=== PATIENT | female | born 1940 | race Caucasian/White ===

== ENCOUNTER 2016-11-29 10:03 | Inpatient (IN) | payer MEDICARE, OTHER ==
[2016-11-29] VITALS (18 sets, daily range): BP systolic 110–149; RESP 14–24; TEMP 97.3–99; Ht 162.6 cm; Wt 87.7 kg
[~2016-11-29] VITALS: Ht 162.6 cm; Wt 87.7 kg
[2016-11-29] MEDS ORDERED: BACITRACIN 50,000 UNITS INJ IRRIG ONE (10:16)
[2016-11-29] MEDS ORDERED: NEOSTIGMINE 10 MG/10 ML VIAL IV ONE (10:25)
[2016-11-29] MEDS ORDERED: LIDOCAINE 2% SYR 5 ML IV ONE (10:25)
[2016-11-29] MEDS ORDERED: FENTANYL 100 MCG/2 ML AMP IV ONE (10:25)
[2016-11-29] MEDS ORDERED: ROCURONIUM 50 MG VIAL IV ONE (10:25)
[2016-11-29] MEDS ORDERED: PROPOFOL 20 ML PER ML IV ONE (10:25)
[2016-11-29] MEDS ORDERED: SUCCINYLCHOLINE 20 MG/ML VL IV ONE (10:25)
[2016-11-29] MEDS ORDERED: GLYCOPYRROLATE 0.2 MG/ML VIAL IV ONE (10:25)
[2016-11-29] MEDS ORDERED: SODIUM CHLORIDE 0.9% 250 ML IV ONE (11:59)
[2016-11-29] MEDS ORDERED: CEFTRIAXONE 1 GM VIAL ONE (11:59)
[2016-11-29] MEDS ORDERED: MORPHINE 4 MG/ML SYR IV PRN ×3 (12:05→18:10)
[2016-11-29] MEDS ORDERED: SALINE FLUSH 10 ML FLUSH PRN ×2 (12:05→18:10)
[2016-11-29] MEDS ORDERED: DEXTROSE 50% SYRINGE 50 ML IV PRN ×2 (12:05→18:10)
[2016-11-29] MEDS ORDERED: ACETAMINOPHEN 325 MG TAB PO PRN (12:05)
[2016-11-29] MEDS ORDERED: MORPHINE 2 MG/ML SYR IV PRN ×3 (12:05→18:10)
[2016-11-29] MEDS ORDERED: ONDANSETRON 4 MG VIAL IV PRN ×2 (12:05→17:15)
[2016-11-29] MEDS ORDERED: GLUCAGON 1 MG VIAL IM PRN ×2 (12:05→18:10)
[2016-11-29] MEDS ORDERED: CEFAZOLIN 2,000 MG in SODIUM CHLORIDE 0.9% 100 ML IV ONE (12:10)
[2016-11-29] MEDS: ALLOPURINOL 300 MG TAB PO SCH (13:19)
[2016-11-29] MEDS: BUMETANIDE 1 MG TAB PO SCH ×2 (14:06→19:45)
[2016-11-29] MEDS: LEVOTHYROXINE 0.15 MG TAB PO SCH (14:07)
[2016-11-29] MEDS: DILTIAZEM CD 120 MG CAP PO SCH (14:07)
[2016-11-29] MEDS ORDERED: LIDOCAINE 1% BUFFERED 1 ML SYR INTRADERM PRN (14:45)
[2016-11-29] MEDS ORDERED: SODIUM CHLORIDE 0.9% 1,000 ML IV SCH (14:45)
[2016-11-29] MEDS ORDERED: NEB-XOPENEX 0.63 MG/3 ML INH ONE (14:45)
[2016-11-29] MEDS ORDERED: MIDAZOLAM 2 MG/2 ML INJ IV ONE (14:45)
[2016-11-29] MEDS ORDERED: MEPERIDINE 25 MG/ML IV PRN (17:15)
[2016-11-29] MEDS ORDERED: LACT RINGERS 1,000 ML IV SCH (18:10)
[2016-11-29] MEDS ORDERED: MAG HYDROX 30 ML UDC PO PRN (18:10)
[2016-11-29] MEDS ORDERED: ONDANSETRON 4 MG TAB PO PRN (18:10)
[2016-11-29] MEDS: MULTIVITS/MINERALS (THERAGRAN M) TAB PO SCH (18:18)
[2016-11-29] MEDS ORDERED: DILAUDID 1 MG/ML AMP ONE (18:26)
[2016-11-29] MEDS ORDERED: DILAUDID 1 MG/ML AMP IV PRN (18:40)
[2016-11-29] MEDS: SALINE FLUSH 10 ML FLUSH SCH (20:00)
[2016-11-29] MEDS ORDERED: SALINE FLUSH 10 ML FLUSH SCH (20:00)
[2016-11-29] MEDS: DUONEB INH PRN ×2 (20:17→23:18)
[2016-11-29] MEDS: DOCUSATE SOD 100 MG CAP PO SCH (21:33)
[2016-11-29] MEDS: Atorvastatin 40 MG TAB PO SCH (21:33)
[2016-11-29] MEDS: CEFAZOLIN 2,000 MG in SODIUM CHLORIDE 0.9% 100 ML IV SCH (23:58)
[2016-11-30 02:52] VITALS: BP_SYST 101; RESP 16; TEMP 98.8
[2016-11-30] MEDS: CEFAZOLIN 2,000 MG in SODIUM CHLORIDE 0.9% 100 ML IV SCH ×3 (04:52→16:59)
[2016-11-30] MEDS: SODIUM CHLORIDE 0.9% FLUSH BAG 500 ML IV SCH (05:53)
[2016-11-30] MEDS ORDERED: SODIUM CHLORIDE 0.9% FLUSH BAG 500 ML IV SCH (06:00)
[2016-11-30] MEDS: LEVOTHYROXINE 0.15 MG TAB PO SCH (06:48)
[2016-11-30] MEDS: ENOXAPARIN 30 MG/0.3 ML SYR SUBQ SCH (06:49)
[2016-11-30 07:19] VITALS: BP_SYST 99; RESP 16; TEMP 98.2
[2016-11-30] MEDS: SALINE FLUSH 10 ML FLUSH SCH ×2 (08:00→21:08)
[2016-11-30] MEDS: BUMETANIDE 1 MG TAB PO SCH ×2 (08:13→16:59)
[2016-11-30] MEDS: DILTIAZEM CD 120 MG CAP PO SCH (08:14)
[2016-11-30] MEDS: DOCUSATE SOD 100 MG CAP PO SCH ×2 (08:14→21:01)
[2016-11-30] MEDS: MULTIVITS/MINERALS (THERAGRAN M) TAB PO SCH (08:14)
[2016-11-30] MEDS: ALLOPURINOL 300 MG TAB PO SCH (08:14)
[2016-11-30] MEDS: ONDANSETRON 4 MG VIAL IV PRN (08:29)
[2016-11-30] MEDS ORDERED: MAG HYDROX 30 ML UDC PO SCH (09:00)
[2016-11-30 12:14] VITALS: BP_SYST 96; RESP 16; TEMP 97.4
[2016-11-30 15:48] VITALS: BP_SYST 93; RESP 20; TEMP 97.7
[2016-11-30 20:25] VITALS: BP_SYST 97; RESP 20; TEMP 98
[2016-11-30] MEDS: SITAGLIPTIN 50 MG TAB PO SCH (20:44)
[2016-11-30] MEDS: METFORMIN XR 500 MG TAB PO SCH (20:44)
[2016-11-30] MEDS: Atorvastatin 40 MG TAB PO SCH (21:02)
[2016-11-30 23:30] VITALS: BP_SYST 96; RESP 18; TEMP 98.1
[2016-12-01] VITALS (8 sets, daily range): BP systolic 98–109; RESP 12–20; TEMP 97.7–98.7
[2016-12-01] MEDS: SODIUM CHLORIDE 0.9% FLUSH BAG 500 ML IV SCH (05:18)
[2016-12-01] MEDS: ENOXAPARIN 30 MG/0.3 ML SYR SUBQ SCH (05:30)
[2016-12-01] MEDS: LEVOTHYROXINE 0.15 MG TAB PO SCH (05:31)
[2016-12-01] MEDS: SALINE FLUSH 10 ML FLUSH SCH ×2 (07:50→20:55)
[2016-12-01] MEDS: BUMETANIDE 1 MG TAB PO SCH ×2 (07:52→16:49)
[2016-12-01] MEDS: DOCUSATE SOD 100 MG CAP PO SCH ×2 (07:52→21:06)
[2016-12-01] MEDS: MULTIVITS/MINERALS (THERAGRAN M) TAB PO SCH (07:53)
[2016-12-01] MEDS: DILTIAZEM CD 120 MG CAP PO SCH (07:53)
[2016-12-01] MEDS: SITAGLIPTIN 50 MG TAB PO SCH (07:53)
[2016-12-01] MEDS: ALLOPURINOL 300 MG TAB PO SCH (07:53)
[2016-12-01] MEDS: METFORMIN XR 500 MG TAB PO SCH (07:54)
[2016-12-01] MEDS ORDERED: ENOXAPARIN 30 MG/0.3 ML SYR SUBQ SCH (09:00)
[2016-12-01] MEDS: Atorvastatin 40 MG TAB PO SCH (21:06)
[2016-12-02] VITALS (13 sets, daily range): BP systolic 96–114; RESP 14–20; TEMP 97.1–98.5
[2016-12-02] MEDS: SODIUM CHLORIDE 0.9% FLUSH BAG 500 ML IV SCH (05:02)
[2016-12-02] MEDS: ENOXAPARIN 30 MG/0.3 ML SYR SUBQ SCH (05:15)
[2016-12-02] MEDS: LEVOTHYROXINE 0.15 MG TAB PO SCH (05:41)
[2016-12-02] MEDS: SALINE FLUSH 10 ML FLUSH SCH ×2 (07:56→20:27)
[2016-12-02] MEDS: DOCUSATE SOD 100 MG CAP PO SCH ×2 (07:57→20:27)
[2016-12-02] MEDS: BUMETANIDE 1 MG TAB PO SCH ×3 (07:57→17:30)
[2016-12-02] MEDS: DILTIAZEM CD 120 MG CAP PO SCH (07:57)
[2016-12-02] MEDS: METFORMIN XR 500 MG TAB PO SCH (07:58)
[2016-12-02] MEDS: SITAGLIPTIN 50 MG TAB PO SCH (07:58)
[2016-12-02] MEDS: ALLOPURINOL 300 MG TAB PO SCH (07:59)
[2016-12-02] MEDS: MULTIVITS/MINERALS (THERAGRAN M) TAB PO SCH (07:59)
[2016-12-02] MEDS ORDERED: KCL CR 10 MEQ CAP PO ONE (08:40)
[2016-12-02] MEDS ORDERED: BISACODYL 10 MG SUPP RECTAL ONE ×2 (13:20→13:46)
[2016-12-02] MEDS ORDERED: FLEET ENEMA 132 ML BTL RECTAL ONE (14:35)
[2016-12-02] MEDS ORDERED: LACTULOSE SOLN 20GM/30ML UDC PO PRN (17:05)
[2016-12-02] MEDS: Atorvastatin 40 MG TAB PO SCH (20:27)
[2016-12-03] MEDS: ONDANSETRON 4 MG VIAL IV PRN (00:24)
[2016-12-03 03:38] VITALS: BP_SYST 106; RESP 18; TEMP 98
[2016-12-03] MEDS: SODIUM CHLORIDE 0.9% FLUSH BAG 500 ML IV SCH (05:52)
[2016-12-03] MEDS: LEVOTHYROXINE 0.15 MG TAB PO SCH (06:03)
[2016-12-03] MEDS: ENOXAPARIN 30 MG/0.3 ML SYR SUBQ SCH (06:04)
[2016-12-03 07:00] VITALS: BP_SYST 108; RESP 18; TEMP 97.9
[2016-12-03] MEDS: DUONEB INH PRN (07:30)
[2016-12-03] MEDS: SALINE FLUSH 10 ML FLUSH SCH (08:00)
[2016-12-03] MEDS: MULTIVITS/MINERALS (THERAGRAN M) TAB PO SCH (08:02)
[2016-12-03] MEDS: DOCUSATE SOD 100 MG CAP PO SCH (08:02)
[2016-12-03] MEDS: METFORMIN XR 500 MG TAB PO SCH (08:02)
[2016-12-03] MEDS: DILTIAZEM CD 120 MG CAP PO SCH (08:02)
[2016-12-03] MEDS: SITAGLIPTIN 50 MG TAB PO SCH (08:02)
[2016-12-03] MEDS: ALLOPURINOL 300 MG TAB PO SCH (08:02)
[2016-12-03] MEDS: BUMETANIDE 1 MG TAB PO SCH ×2 (08:03→16:43)
[2016-12-03 11:25] VITALS: BP_SYST 125; RESP 16; TEMP 97.7
[2016-12-03 15:23] VITALS: BP_SYST 132; RESP 16; TEMP 99.4
[2016-12-03 15:52] VITALS: BP_SYST 132; RESP 16; TEMP 99.4
== END 2016-12-03 16:50 | DRG 481 ==
LOC: ENRESERVTM → ENRESERVDT → ER 10:03 → ENPENDDIS 12:12 → EMR 12:12 → 2NO 13:09
PROVIDERS: ADMIT Internal Medicine; ATTEND Internal Medicine
PROC: 0QSC04Z Reposition Left Lower Femur with Internal Fixation Device, Open Approach (ICD-10-PCS; principal; 2016-11-29 16:36)
DX: S72.455A Nondisplaced supracondylar fracture without intracondylar extension of lower end of left femur, initial encounter for closed fracture (principal); I48.92 Unspecified atrial flutter; E11.22 Type 2 diabetes mellitus with diabetic chronic kidney disease; D69.6 Thrombocytopenia, unspecified; D62 Acute posthemorrhagic anemia; E03.9 Hypothyroidism, unspecified; Z79.84 Long term (current) use of oral hypoglycemic drugs; Z87.891 Personal history of nicotine dependence; I12.9 Hypertensive chronic kidney disease with stage 1 through stage 4 chronic kidney disease, or unspecified chronic kidney disease; N18.9 Chronic kidney disease, unspecified; Z82.49 Family history of ischemic heart disease and other diseases of the circulatory system; Z80.52 Family history of malignant neoplasm of bladder; Z80.8 Family history of malignant neoplasm of other organs or systems; Z80.1 Family history of malignant neoplasm of trachea, bronchus and lung; E87.6 Hypokalemia; M10.9 Gout, unspecified; M81.0 Age-related osteoporosis without current pathological fracture; K59.00 Constipation, unspecified
CPT/HCPCS: 36415; 36430; 71010; 71250; 76001; 80048; 80053; 81001; 82043; 82306; 82570; 82947; 83036; 84439; 84443; 85014; 85018; 85025; 85610; 85730; 86850; 86900; 86901; 86923; 93005; 94640; 94762; 94799; 96374; 96375; 99223; 99232; 99239